=== PATIENT | male | born 1925 | race Caucasian/White ===

== ENCOUNTER 2016-11-12 15:30 | Inpatient (IN) ==
--- NOTE | 2016-11-12 16:48 | Emergency Department Note ---
IMaureen Emily, am scribing for, and in the presence of, William Roberts MD 16: 46. Armando Pierre Charles R, MD, personally performed the services described in this documentation, ascribed by Vidhya Reddy in my presence, and it is both accurate and complete . Arrival - Arrival Chief Complaint: Altered Mental Status Stated Complaint: FELL ED Nursing Triage Note: Family c/o patient with altered mental status onset this am. Son reports told family member this am, he had women and children in his home, but he lives alone and noone else was present. Awake and alert to name and time at present. Also reports tripped over rocking chair and fell onto floor this am, denies injury. Son reports take coumadin daily. Mode of Arrival: Wheelchair Limitations: No Limitations Source: Patient, Family - History of Present Illness HPI Narrative: Pt is a 89 y/o male who was brought to ED by family for further evaluation of AMS that started this morning. Family notes he has been talking out of his head , calling for family members that are out of country, phone calling family members early hours of morning, thoughts some ladies were watching dogs (pt watchs dogs), and called son this afternoon that he fell. However, son reports pt did fall and he helped him to get up, but denies LOC or hitting head. Daughter notes pt was in and out of confusion en route to ED, but she states he seems to be better at answering questions appropriately. Family notes he did have some SOB en route as well, but no resolved. Pt states he does self cath 3x daily. Son notes pt drinks a glass of red wine a night. PCP of pt's is Dr. Bustamante and does take Coumadin daily from PE in the past. Son reports pt had an episode similar to this one a couple years back, in which gareth to [facility], then swing bed, then home with no improvement. Then came to [facility], and pt did improve but not fully. Onset (ago): hour(s) Consistency: constant Severity: mild, moderate Severity scale (1-10): 4 Allergies/Adverse Reactions: Allergies Allergy/AdvReac Type Severity Reaction Status Date / Time No Known Allergies Allergy Verified 11/12/16 16:10 Home Medications: Home Medications Medication Instructions Recorded Confirmed Type Aspirin [Ecotrin] 81 mg PO BID 11/05/14 11/12/16 History Carvedilol [Coreg] 3.125 mg PO 1200 11/05/14 11/12/16 History Dorzolamide/Timolol Oph Soln 2 drop LEFT EYE BID 11/05/14 11/12/16 History [Cosopt] Furosemide Tab [Lasix Tab] 20 mg PO 1200 11/05/14 11/12/16 History Multivitamin [One Daily] 1 each PO 119911/05/14 11/12/16 History Dicyclomine Cap/Tab [Bentyl 10 mg PO QID 11/12/16 11/12/16 History Cap/Tab] Linaclotide [Linzess] 290 mcg PO 119911/12/16 11/12/16 History Polyethylene Glycol Powder 1 each PO 119911/12/16 11/12/16 History [Miralax] Warfarin Sodium [Warfarin Sodium] 7.5 mg PO MOTUTHFRSA@119911/12/16 11/12/16 History Warfarin Sodium [Warfarin Sodium] 10 mg PO SUWE@119911/12/16 11/12/16 History Review of System - Review of System 12 point system: reviewed and no additional remarkable complaints except as stated - Review of System Constitutional: Present: other (fell today, no injury with fall). Absent: chills, fever Respiratory: Present: respiratory distress (SOB but now resolved) Cardiovascular: Absent: chest pain Gastrointestinal: Absent: abdominal pain, nausea, vomiting, diarrhea Musculoskeletal: Absent: back pain Skin: Absent: rash Neurological: Present: confusion. Absent: headache, abnormal gait, other Medical,Surgical,& Family Hx - Medical History Cardio: History of: Hypertension Neurology: History of: TIA Respiratory: History of: Pulmonary Embolism Renal: History of: Renal Problems (self-catherization, constipation) Genitourinary: History of: Recurring Urinary Tract Infections - Surgical History HEENT Surgeries: Surgical HX of: Eye Surgery (right eye glass) - Social History Smoking Status: Never smoker Frequency of Alcohol Use: None Type of Drug Use: None Marital Status: Single Lives With:: Alone (but lives in vicinity of family) Functional capacity: independent ambulation Exam Vital Signs: Vital Signs Temperature 97.8 F 11/12/16 16:24 Pulse Rate 68 11/12/16 16:24 Respiratory Rate 20 11/12/16 16:24 Blood Pressure 111/75 11/12/16 16:24 O2 Sat by Pulse Oximetry 97 11/12/16 16:47 - General General appearance: alert, in no apparent distress - Head Head exam: Present: atraumatic, normocephalic - Eye Eye exam: Present: PERRL, EOMI, other (crusting around eyelids) - ENT ENT exam: Present: mucous membranes dry. Absent: mucous membranes moist - Neck Neck exam: Present: full ROM, trachea midline - Chest Chest inspection: Present: symmetric chest wall rise - Respiratory Respiratory exam: Present: accessory muscle use, rales (bilateral crackles). Absent: respiratory distress - Cardiovascular Cardiovascular exam: Present: regular rate, normal rhythm, normal heart sounds - Extremities Exam Extremities exam: Present: full ROM, pedal edema (+2). Absent: tenderness - Neurological Exam Neurological exam: Present: alert, oriented X3 (pleasantly confused, but stable of orientation x3), CN II-XII intact. Absent: motor sensory deficit - Skin Skin exam: Present: warm, dry Course - Consultations Consultation #1: Hospitalist will admit patient Time: 19:25 Results - Labs CBC & BMP: 11/12/16 16:27 11/12/16 16:27 Lab Results: I have reviewed the patients labs Labs: Laboratory Tests 11/12/16 11/12/16 16:27 16:27 WBC 12.7 H RBC 3.50 L Hgb 11.7 L Hct 35.5 L Plt Count 89 L Lymph % (Auto) 18.1 L [place] % (Auto) 12.9 H Neut # (Auto) 8.7 H [place] # (Auto) 1.6 H INR 2.4 PT Patient/Control Mix 26.8 Circ Anticoag PTT 42.3 H D Laboratory Tests 11/12/16 16:27 Sodium 139 Potassium 4.9 Chloride 109 H Carbon Dioxide 23 Anion Gap 11.9 BUN 38 H Creatinine 2.30 H GFR Calculation 30 Glucose 106 AST 50 H Troponin I < 0.015 Albumin/Globulin Ratio 1.0 L Serum Alcohol < 15 L Laboratory Tests 11/12/16 16:27 Prolactin 8.4 Treponema pallidum IgG Nonreactive Laboratory Tests 11/12/16 16:27 Platelet Estimate Decreased Pappenheimer Bodies - Diagnostic Findings Procedure: Chest x-ray: report reviewed by me (No acute cardiopulmonary process. ), CT: report reviewed by me (Head wo con: Findings are most suggestive of a remote infract within the right parietal lobe although this was not present on the 2013 CT. No interval other imaging is available for comparison. Diffuse atrophy and sequela of chronic microvascular ischemia. If concern for acute infract is high, MRI would be recommended.) Disposition Clinical Impression: UTI (urinary tract infection), Altered mental status Case discussed with: patient, patient's family Disposition: Still a Patient Condition: Stable Time of Disposition: 19:26
[2016-11-12 16:57] LABS: Basophils % 0.2 % (0.0-0.8); Eosinophils % 0.2 % (0.00-10.9); Hematocrit 35.5 VOL% (42.0-52.0); Hemoglobin 11.7 GM/DL (14.0-18.0); Immature Granulocytes % 0.5 %; Immature Granulocytes Absolute 0.06 #; Lymphocytes # 2.3 10*3/uL (1.4-4.0); Lymphocytes % 18.1 % (21.2-54.2); Mean Corpuscular Hemoglobin 33 PG (27-34); Mean Corpuscular Volume 101.4 FL (87-102); Mean Platelet Volume 11.3 FL (9.6-12.0); Monocytes # 1.6 10*3/uL (0.11-0.8); Monocytes % 12.9 % (1.7-12.7); Neutrophils # 8.7 10*3/uL (1.4-7.4); Neutrophils % 68.1 % (38.7-73.9); Platelet Count 89 T/CUMM (130-400); Red Cell Distribution Width 13.6 % (9.3-17.3); White Blood Count 12.7 T/CUMM (4-12)
[2016-11-12 17:15] LABS: INR 2.4
[2016-11-12 17:16] LABS: PT Patient Result 26.8 SECS; Partial Thromboplastin Time 42.3 SECS (0-40)
--- NOTE | 2016-11-12 17:24 | XRay Report ---
Exam: XR chest 1V portable Indication: Fall, contusions, dyspnea Comparison study: 11/05/2014 Findings: The heart, mediastinum and bony structures are stable from prior. There is no focal consolidation, pneumothorax or pleural effusion identified. Impression: No acute cardiopulmonary process. PROCEDURE INTERPRETED AT [facility] DEPARTMENT OF RADIOLOGY Final Report Signed by: Jeison Starr
[2016-11-12 17:26] LABS: Ammonia 32 UMOL/L (11-32)
--- NOTE | 2016-11-12 17:28 | CT Report ---
CT head/brain wo con INDICATION: Fall Headache contusions The total DLP is 1053 mGy*cm. COMPARISON: Noncontrast CT head dated and MRI brain dated 06/30/12 Technique: Serial axial tomographic images of the brain were obtained without the use of intravenous contrast. Dose reduction: This CT exam was performed using one or more of the following dose reduction techniques: Automated exposure control, automated adjustment of the mA and/or KV according to patient size, or use of iterative reconstruction technique. Findings: Prominent hypodensity within the right parietal lobe is new when compared to the 2013 CT study but most suggestive of remote infarct. Moderate generalized atrophy is noted with mild prominence of the sulci and cortical volume loss. Periventricular white matter hypodensity changes are noted bilaterally which do not demonstrate mass effect and are nonspecific but favored to represent sequela of chronic microvascular ischemia. There is no evidence of acute intracranial hemorrhage. The rich-white matter differentiation is otherwise generally maintained. There is no hydrocephalus. The basilar cisterns are patent. The visualized paranasal sinuses, left mastoid air cells and middle ear cavities are predominantly clear. Partial opacification of right mastoid air cells is noted. Postsurgical changes of prior bilateral orbital surgery is noted. The visualized osseous structures and overlying soft tissues of the skull and face demonstrate no acute abnormality. 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 No interval other imaging is available for comparison. Diffuse atrophy and sequela of chronic microvascular ischemia. If concern for acute infarct is high, MRI would be recommended. Generalized atrophy and sequela of chronic microvascular ischemia. PROCEDURE INTERPRETED AT [facility] DEPARTMENT OF RADIOLOGY Final Report Signed by: Jeison Starr
[2016-11-12 17:30] LABS: Alanine Aminotransferase 44 U/L (16-61); Albumin 3.6 G/DL (3.4-5.0); Alkaline Phosphatase 77 U/L (45-117); Aspartate Amino Transferase 50 U/L (0-37); Blood Urea Nitrogen 38 MG/DL (7-18); Calcium 8.6 MG/DL (8.5-10.1); Glucose 106 MG/DL (74-106); Magnesium 2.3 MG/DL (1.8-2.4); Osmolality,Calculated 285.5 MOS/KG (273-304); Potassium 4.9 MMOL/L (3.5-5.1); Sodium 139 MMOL/L (136-145); Troponin I Only < 0.015 NG/ML (0.00-0.045)
[2016-11-12 17:50] LABS: Prolactin 8.4 NG/ML
[2016-11-12 17:53] LABS: Platelet Estimate Decreased
[2016-11-12 19:21] LABS: Apearance,Urine CLOUDY (Clear); Bilirubin,Urine Negative (Negative); Blood, Urine Large mg/dL (Negative); Glucose,Urine (UA) Negative (Negative); Ketones,Urine Negative (Negative); Mucus,Urine Occasional /LPF (Occasional); Nitrite,Urine Negative (Negative); Protein,Urine 100 MG/DL; RBC,Urine 149 /HPF (0-4); Urine Color Yellow (Yellow); Urine Specific Gravity 1.013 (1.001-1.035); Urine Urobilinogen < 2.0 EU/DL (0.2-1.0); WBC,Urine 867 /HPF (0-6)
[2016-11-12] MEDS ORDERED: cefTRIAXone 1,000 MG in SODIUM CHLORIDE 0.9% 100 ML IV STA (19:24)
[2016-11-12] MEDS ORDERED: SODIUM CHLORIDE 0.9% 100 ML IV ONE (19:42)
[2016-11-12] MEDS ORDERED: cefTRIAXone 1,000 MG VIAL ONE (19:42)
[2016-11-12] MEDS ORDERED: BISACODYL 5 MG TABLET PO PRN (20:08)
[2016-11-12] MEDS ORDERED: ACETAMINOPHEN 325 MG TABLET PO PRN (20:08)
--- NOTE | 2016-11-12 20:59 | Hospitalist History & Physical ---
Assessment and Plan - Time spent with patient Time spent with patient: Greater than 30 minutes (1) UTI (urinary tract infection) Status: Acute Assessment and plan: Admit to hospitalist services. Urine cultures obtained in ED. Follow. Rocephin 1 gm IV given in ED. Start meropenem 1 gm IV Q12 hours. Creatinine was 2.3. Hydrate with NS at 100 ml/hr IV. Recheck CBC in am. Current Visit: Yes (2) Altered mental status Status: Acute Assessment and plan: Likely related to UTI. Plan as above for UTI. Continue to monitor. Current Visit: Yes (3) Urinary retention Status: Acute Assessment and plan: Intermittent urinary catheterization Q6 hours. Current Visit: Yes (4) Elevated serum creatinine Status: Acute Assessment and plan: Hydrate with NS at 100 ml/hr. Hold lasix for now. Recheck BMP in am. Current Visit: Yes (5) Hypertension Status: Acute Assessment and plan: Stable in ED. Continue home dose of Coreg 3.125 mg PO daily. Hold lasix for now due to creatinine of 2.3. Continue to monitor. Current Visit: Yes (6) IBS (irritable bowel syndrome) Status: Acute Assessment and plan: IBS with chronic constipation. Continue home dose of miralax and Linzess. Hold home dose of Bentyl for now. Current Visit: Yes (7) History of pulmonary embolus (PE) Status: Acute Assessment and plan: Continue home dose of Coumadin. PT/INR in ED was 26.8/2.4 Recheck PT/INR in am. Current Visit: Yes (8) DVT prophylaxis Status: Acute Assessment and plan: Already taking Coumadin. Continue. Current Visit: Yes History of Present Illness Chief complaint: AMS History of present illness: Mr. Helm is a 89 year old male with a past medical history significant for hypertension, pulmonary embolism, detached retina right eye, IBS with constipation, and urinary retention requiring self-catheterization. 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 Mr. Helm presented the the emergency department of [facility] today accompanied by family who stated that he was "talking out of his head," and they were concerned about a CVA. Evaluation in the ED revealed a WBC count of 12.7, creatinine of 2.3, urine with a large number of WBCs. A urine culture was obtained. His vital signs were stable, and he is afebrile. Currently, he denies any symptoms including fever, abdominal pain, or N/V/D. Hosptialist services were consulted, and the patient will be admitted to the medical-surgical unit for further evaluation and treatment. Home Medications Medication Instructions Recorded Confirmed Type Aspirin [Ecotrin] 81 mg PO BID 11/05/14 11/12/16 History Carvedilol [Coreg] 3.125 mg PO 119911/05/14 11/12/16 History Dorzolamide/Timolol Oph Soln 2 drop LEFT EYE BID 11/05/14 11/12/16 History [Cosopt] Furosemide Tab [Lasix Tab] 20 mg PO 119911/05/14 11/12/16 History Multivitamin [One Daily] 1 each PO 119911/05/14 11/12/16 History Dicyclomine Cap/Tab [Bentyl 10 mg PO QID 11/12/16 11/12/16 History Cap/Tab] Linaclotide [Linzess] 290 mcg PO 119911/12/16 11/12/16 History Polyethylene Glycol Powder 1 each PO 119911/12/16 11/12/16 History [Miralax] Warfarin Sodium [Warfarin Sodium] 7.5 mg PO MOTUTHFRSA@119911/12/16 11/12/16 History Warfarin Sodium [Warfarin Sodium] 10 mg PO SUWE@119911/12/16 11/12/16 History Allergies Allergy/AdvReac Type Severity Reaction Status Date / Time No Known Allergies Allergy Verified 11/12/16 16:10 Medical,Surgical,& Family Hx - Medical History Cardio: History of: Hypertension No history of: Cerebrovascular Disease, CHF, [place] Psychological: No history of: Anxiety Disorders, Depression Neurology: History of: TIA No history of: Cerebrovascular Accident HEENT: History of: Eye Problem (right glass eye) No history of: Ear Problem Endocrine: No history of: Diabetes Mellitus (IDDM), Diabetes Mellitus (NIDDM), Dyslipidemia Rheumatology: No history of;: Rheumatoid Arthritis Respiratory: History of: Pulmonary Embolism No history of: Asthma, COPD Renal: History of: Renal Problems (self-catherization) Genitourinary: History of: Recurring Urinary Tract Infections Gastrointestinal: History of: GI Problems (IBS with constipation) Hematology: History of: Clotting Problems (takes coumadin daily for previous PE. ) Other: No history of: Cancer - Surgical History HEENT Surgeries: Surgical HX of: Eye Surgery (right eye glass) - Family History Family History: Reports;: Family Heart Disease, Family Hypertension - Social History Smoking Status: Former smoker Have you smoked in the last 12 months: No Frequency of Alcohol Use: Occasionally (1 glass of wine nightly) Type of Drug Use: None Marital Status: Lives With:: Alone Functional capacity: uses cane/walker (walking stick) - Constitutional Constitutional: Absent: chills, fever(s), lethargy, malaise, weakness - EENT Eyes: Present: loss of vision (glass right eye) Ears: Absent: decreased hearing, ear discharge Nose, mouth and throat: Absent: headache(s), nasal congestion, sore throat - Cardiovascular Cardiovascular: Present: dyspnea, edema (BLEs). Absent: chest pain at rest, chest pain with activity, diaphoresis, palpitations - Respiratory Respiratory: Present: dyspnea. Absent: cough, wheezing - Gastrointestinal Gastrointestinal: Present: constipation. Absent: diarrhea, nausea, vomiting - Genitourinary Genitourinary: Present: difficulty urinating (requires self-catheterization) - Musculoskeletal Musculoskeletal: Absent: arthralgias, joint swelling, muscle weakness, myalgias - Neurological Neurological: Present: confusion. Absent: numbness, paresthesias, syncope - Psychiatric Psychiatric: Absent: anxiety, depression - Endocrine Endocrine: Absent: cold intolerance, polydipsia, polyphagia, polyuria - Hematologic/Lymphatic Hematologic/Lymphatic: Present: easy bleeding, easy bruising Exam - Constitutional Vitals: Period Temp Pulse Resp BP Sys/Leon Pulse Ox Last 24 Hr 97.8 F-97.8 F 68-68 20-20 111-111/75-75 97-97 Exam: Constitutional System: Afebrile. Awake, alert and oriented x 3. No distress. No tremulousness. Head: Normocephalic, atraumatic. Ears, Nose and Throat System: No pain or tenderness. No epistaxis or discharge Eyes System: Left pupil equal, round, and reactive. Glass right eye. Extraocular muscles intact for left eye. Neck: Supple, without adenopathy, No jugular venous distention. No thyromegaly, neck mass, or prior surgery apparent. Respiratory System: Chest clear to auscultation. Cardiovascular System: Heart with regular rate and rhythm. No murmur. GI System: Abdomen soft, nontender. Normo active bowel sounds present. Musculoskeletal System: Moderate BLE dependent edema noted. Full distal pulses. Normal capillary refill. Neurological System: No discernable sensory deficit. No aphasia Psychiatric System: Conversation is rational Results - Labs CBC & BMP: 11/12/16 16:27 11/12/16 16:27 Lab Results: I have reviewed the past 24 hour labs Quality Measures - VTE Contraindication to Pharmacological VTE Prophylaxis: Already on Theraputic Agent , No Prophylaxis Needed
[2016-11-12] MEDS ORDERED: MEROPENEM 1,000 MG in SODIUM CHLORIDE 0.9% 100 ML IV SCH (23:00)
[2016-11-13] MEDS: SODIUM CHLORIDE 0.9% 1,000 ML IV SCH ×3 (00:02→17:03)
[2016-11-13] MEDS: DORZOLAMIDE/TIMOLOL OPH SOLN 10 ML BOTTLE LEFT EYE SCH ×3 (00:03→21:00)
[2016-11-13] MEDS: ASPIRIN EC 81 MG TABLET PO SCH ×3 (00:03→20:59)
[2016-11-13 06:16] LABS: Calcium 7.8 MG/DL (8.5-10.1); Osmolality,Calculated 294.1 MOS/KG (273-304); Potassium 4.3 MMOL/L (3.5-5.1)
[2016-11-13 06:17] LABS: INR 2.6; PT Patient Result 29.4 SECS
[2016-11-13 07:33] LABS: Basophils % 0.3 % (0.0-0.8); Eosinophils # 0.1 10*3/uL (0.0-0.87); Eosinophils % 0.5 % (0.00-10.9); Hematocrit 31.6 VOL% (42.0-52.0); Hemoglobin 10.4 GM/DL (14.0-18.0); Immature Granulocytes % 0.4 %; Immature Granulocytes Absolute 0.04 #; Lymphocytes # 2.3 10*3/uL (1.4-4.0); Lymphocytes % 24.8 % (21.2-54.2); Mean Corpuscular HGB Conc 32.9 GM/DL (32-36); Mean Corpuscular Hemoglobin 33 PG (27-34); Mean Corpuscular Volume 101.3 FL (87-102); Mean Platelet Volume 11.9 FL (9.6-12.0); Monocytes # 0.7 10*3/uL (0.11-0.8); Monocytes % 7.5 % (1.7-12.7); Neutrophils # 6.1 10*3/uL (1.4-7.4); Neutrophils % 66.5 % (38.7-73.9); Red Blood Count 3.12 MC/CUMM (3.8-5.5); Red Cell Distribution Width 13.8 % (9.3-17.3); White Blood Count 9.2 T/CUMM (4-12)
[2016-11-13 07:35] LABS: Platelet Count 74 T/CUMM (130-400)
[2016-11-13 07:55] LABS: Platelet Estimate Decreased
[2016-11-13] MEDS: cefTRIAXone 1,000 MG in SODIUM CHLORIDE 0.9% 100 ML IV SCH (09:39)
[2016-11-13] MEDS: MULTIVITAMIN (CENTRUM) TABLET PO SCH (11:36)
[2016-11-13] MEDS: CARVEDILOL 3.125 MG TABLET PO SCH (11:36)
[2016-11-13] MEDS: POLYETHYLENE GLYCOL POWDER 17 GM PACK PO SCH (11:36)
[2016-11-13] MEDS: LINACLOTIDE 145 MCG CAPSULE PO SCH (11:36)
--- NOTE | 2016-11-13 17:59 | Hospitalist Progress Note ---
Hospitalist: Subjective Interval history: 89-year-old male who was admitted with UTI and metabolic encephalopathy. Exam - Constitutional Vitals: Period Temp Pulse Resp BP Sys/Leon Pulse Ox Last 24 Hr 97.7 F-98.9 F 63-71 14-22 141-161/61-79 94-98 Exam: General: [No Acute Distress] HEENT: [Normocephalic, atraumatic, Extra ocular movements intact] Neck: [Supple, No JVD] Chest: [Clear to auscultation B/L] CV: [S1 + S2 audible without murmur, gallop or rub] Abd: [soft, NT, Non-distended, BS +] Ext: [No edema] Skin: [No purpura, bruising or rash] Rheumatologic: [No Joint deformities] Neurologic: [Mildly confused] Results - Labs CBC & BMP: 11/13/16 04:39 11/13/16 04:39 - Impressions Assessment and Plan - Time spent with patient Time spent with patient: Greater than 30 minutes (1) UTI (urinary tract infection), POA Status: Acute Assessment and plan: Continue IV Rocephin, follow-up urine culture which is growing gram-negative rods Current Visit: Yes (2) Altered mental status/metabolic encephalopathy Status: Acute Assessment and plan: Due to UTI. Current Visit: Yes (3) Urinary retention Status: Acute Assessment and plan: Intermittent urinary catheterization Q6 hours. Current Visit: Yes (4) Elevated serum creatinine Status: Acute Assessment and plan: Hydrate with NS at 100 ml/hr. Hold lasix for now. Recheck BMP in am. Current Visit: Yes (5) Hypertension, Ess Status: Acute Assessment and plan: Stable in ED. Continue home dose of Coreg 3.125 mg PO daily. Hold lasix for now due to creatinine of 2.3. Continue to monitor. Current Visit: Yes (6) IBS (irritable bowel syndrome) Status: Acute Assessment and plan: IBS with chronic constipation. Continue home dose of miralax and Linzess. Hold home dose of Bentyl for now. Current Visit: Yes (7) History of pulmonary embolus (PE) Status: Acute Assessment and plan: Continue home dose of Coumadin. PT/INR in ED was 26.8/2.4 Recheck PT/INR in am. Current Visit: Yes (8) DVT prophylaxis Status: Acute Assessment and plan: Already taking Coumadin. Continue. Current Visit: Yes Quality Measures - VTE Contraindication to Pharmacological VTE Prophylaxis: Already on Theraputic Agent , No Prophylaxis Needed
[2016-11-13] MEDS ORDERED: WARFARIN 5 MG TABLET PO SCH (18:00)
[2016-11-14] MEDS: SODIUM CHLORIDE 0.9% 1,000 ML IV SCH ×2 (05:46→13:51)
--- NOTE | 2016-11-14 08:49 | Physician Query Form ---
CLICK EDIT DOCUMENT TO SELECT QUERY ANSWER --> OK --> SIGN Radha Mittal RN Clinical Material Control Manager W) [phone] (f) [phone] [email or web address] PROVIDERS: Make your selection(s) from the choices in EACH section by typing an "x" and enter comments in the comment section. Please use your independent medical judgment in providing your response. This request does not imply that any particular answer is desired or expected. CLINICAL INDICATORS: (Providers should not edit this section) Pt. admitted with UTI. Based on documentation of "Pt states he does self cath 3x daily". Based on the above, could you clarify the appropriate diagnosis, if significant , that supports the above abnormalities and additional evaluation, monitoring, and/or treatment rendered: ( x) UTI due to self catheterizations ( ) UTI not due to self catheterizations ( ) Other, please specify: ( ) Clinically unable to determine COMMENTS: PLEASE ALSO DOCUMENT RESPONSE IN PROGRESS NOTES AND/OR DISCHARGE SUMMARY Use of terms such as suspected, likely, or probable (associated with a specific diagnosis that is being evaluated, monitored, or treated as if it exists) are acceptable and can be restated in the discharge summary if not ruled out. [facility]
[2016-11-14] MEDS: ASPIRIN EC 81 MG TABLET PO SCH ×2 (09:01→21:38)
[2016-11-14] MEDS: cefTRIAXone 1,000 MG in SODIUM CHLORIDE 0.9% 100 ML IV SCH (09:01)
[2016-11-14] MEDS: DORZOLAMIDE/TIMOLOL OPH SOLN 10 ML BOTTLE LEFT EYE SCH ×2 (09:02→21:41)
[2016-11-14 10:25] LABS: INR 1.8; PT Patient Result 19.3 SECS
[2016-11-14] MEDS: LINACLOTIDE 145 MCG CAPSULE PO SCH (11:45)
[2016-11-14] MEDS: MULTIVITAMIN (CENTRUM) TABLET PO SCH (11:45)
[2016-11-14] MEDS: CARVEDILOL 3.125 MG TABLET PO SCH (11:45)
[2016-11-14] MEDS: POLYETHYLENE GLYCOL POWDER 17 GM PACK PO SCH (11:47)
--- NOTE | 2016-11-14 17:11 | Hospitalist Progress Note ---
Hospitalist: Subjective Interval history: 89-year-old male who was admitted with UTI and metabolic encephalopathy. Confusion continues to improve Exam - Constitutional Vitals: Period Temp Pulse Resp BP Sys/Leon Pulse Ox Last 24 Hr 97.8 F-99.0 F 66-78 16-20 143-162/69-83 94-96 Exam: General: [No Acute Distress] HEENT: [Normocephalic, atraumatic, Extra ocular movements intact] Neck: [Supple, No JVD] Chest: [Clear to auscultation B/L] CV: [S1 + S2 audible without murmur, gallop or rub] Abd: [soft, NT, Non-distended, BS +] Ext: [No edema] Skin: [No purpura, bruising or rash] Rheumatologic: [No Joint deformities] Neurologic: [Mildly confused] Results - Labs CBC & BMP: 11/13/16 04:39 11/13/16 04:39 - Impressions Assessment and Plan (1) UTI (urinary tract infection), POA Status: Acute Assessment and plan: Continue IV Rocephin, follow-up urine culture which is growing gram-negative rods Current Visit: Yes (2) Altered mental status/metabolic encephalopathy Status: Acute Assessment and plan: Due to UTI. Current Visit: Yes (3) Urinary retention Status: Acute Assessment and plan: Intermittent urinary catheterization Q6 hours. Current Visit: Yes (4) Elevated serum creatinine Status: Acute Assessment and plan: Hydrate with NS at 100 ml/hr. Hold lasix for now. Recheck BMP in am. Current Visit: Yes (5) Hypertension, Ess Status: Acute Assessment and plan: Stable in ED. Continue home dose of Coreg 3.125 mg PO daily. Hold lasix for now due to creatinine of 2.3. Continue to monitor. Current Visit: Yes (6) IBS (irritable bowel syndrome) Status: Acute Assessment and plan: IBS with chronic constipation. Continue home dose of miralax and Linzess. Hold home dose of Bentyl for now. Current Visit: Yes (7) History of pulmonary embolus (PE) Status: Acute Assessment and plan: Continue home dose of Coumadin. PT/INR in ED was 26.8/2.4 Recheck PT/INR in am. Current Visit: Yes (8) DVT prophylaxis Status: Acute Assessment and plan: Already taking Coumadin. Continue. Current Visit: Yes Quality Measures - VTE Contraindication to Pharmacological VTE Prophylaxis: Already on Theraputic Agent , No Prophylaxis Needed
[2016-11-14] MEDS ORDERED: WARFARIN 7.5 MG TABLET PO SCH (18:00)
[2016-11-15] MEDS: SODIUM CHLORIDE 0.9% 1,000 ML IV SCH ×2 (04:57→14:29)
[2016-11-15 07:00] LABS: INR 1.5; PT Patient Result 16.7 SECS
[2016-11-15] MEDS: ASPIRIN EC 81 MG TABLET PO SCH (08:29)
[2016-11-15] MEDS: DORZOLAMIDE/TIMOLOL OPH SOLN 10 ML BOTTLE LEFT EYE SCH (08:29)
[2016-11-15] MEDS: cefTRIAXone 1,000 MG in SODIUM CHLORIDE 0.9% 100 ML IV SCH (09:54)
[2016-11-15] MEDS: LINACLOTIDE 145 MCG CAPSULE PO SCH (11:00)
[2016-11-15] MEDS: CARVEDILOL 3.125 MG TABLET PO SCH (11:00)
[2016-11-15] MEDS: POLYETHYLENE GLYCOL POWDER 17 GM PACK PO SCH (11:00)
[2016-11-15] MEDS: MULTIVITAMIN (CENTRUM) TABLET PO SCH (11:00)
[2016-11-15 11:11] VITALS: BP 160/75
--- NOTE | 2016-11-15 11:49 | Discharge Summary ---
Hospital Course - Hospital Course Hospital Course: 89 year old male with a past medical history significant for hypertension, pulmonary embolism, detached retina right eye, IBS with constipation, and urinary retention requiring self-catheterization. 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 Mr. Helm presented to the the emergency department of [facility] accompanied by family who stated that he was "talking out of his head," and they were concerned about this confusion. Evaluation in the ED revealed a WBC count of 12.7, creatinine of 2.3, urine with a large number of WBCs. A urine culture was obtained. Pt was admitted and started on IV Rocephin. Urine culture grew pansensitive E Coli. His confusion has resolved. 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 He is doing much better, and is being dicharged to swing bed in an improved condition. Total DC Time: 40 minutes - Time spent with patient Time with patient DS: Greater than 30 minutes Diagnosis - Discharge Diagnosis (1) Altered mental status Status: Resolved (2) UTI (urinary tract infection) Status: Resolved Discharge Plan - Discharge Data Disposition: Swing Bed, Hos Based, [facility] Condition at Discharge: Stable Discharge Diet: regular diet Activity: resume usual activities as tolerated Hygiene: no restrictions Weight Bearing at Discharge: full weight bearing Driving: no restrictions - Discharge Medications New Carbamide Perox 6.5% Otic Soln [Debrox] 2 drop BOTH EARS BID #1 bottle Cefuroxime Tab [Ceftin] 500 mg PO BID #10 tablet Continue Dorzolamide/Timolol Oph Soln [Cosopt] 1 drop LEFT EYE BID Furosemide Tab [Lasix Tab] 20 mg PO 1200 Multivitamin [One Daily] 1 each PO 1200 Carvedilol [Coreg] 3.125 mg PO 1200 Aspirin [Ecotrin] 81 mg PO DAILY Warfarin Sodium 10 mg PO SUWE@1200 Polyethylene Glycol Powder [Miralax] 1 each PO 1200 Warfarin Sodium 7.5 mg PO MOTUTHFRSA@1200 Linaclotide [Linzess] 290 mcg PO 1200 Dicyclomine Cap/Tab [Bentyl Cap/Tab] 10 mg PO QID - Follow Up or Referral - Forms/Instructions Exam - Constitutional Vitals: Period Temp Pulse Resp BP Sys/Leon Pulse Ox Last 24 Hr 97.4 F-98.9 F 67-73 18-20 146-160/66-79 91-99 Exam: General: No Acute Distress HEENT: Normocephalic, atraumatic, Extra ocular movements intact Neck: Supple, No JVD Chest: Clear to auscultation B/L CV: S1 + S2 audible without murmur, gallop or rub Abd: soft, NT, Non-distended, BS + Ext: No edema Skin: No purpura, bruising or rash Rheumatologic: No Joint deformities Neurologic: Strength 5/5 all extremities, no gross sensory deficits Discharge Results Procedures and tests throughout hospitalization: Pending Orders 11/12/16 17:49 Blood Culture Stat Labs on day of discharge: Labs from last 24 hours 11/15/16 05:08 INR 1.5 PT Patient/Control Mix 16.7 Preliminary micro results at discharge 11/12/16 17:49 Blood Culture - Preliminary Blood No growth at 1 day 11/12/16 17:49 Blood Culture - Preliminary Blood No growth at 1 day DS: Provider Date of admission: 11/12/16 20:08 Primary care physician: Roman Caruso DO Attending physician on admission: Tavo Underwood MD Consults: 11/13/16 02:43 Consult to Wound Care - Copen [CONS] Routine Reason for Wound Care: Wound Care Management 11/14/16 07:59 Consult to Case Mgmt/Social Srvs [CONS] Routine Reason for Case Mgmt/Social Srvs: Discharge Planning Swingbed/SNF/Custodial 11/14/16 08:52 Consult to Occupational Therapy [CONS] Routine Reason for Occupational Therapy: Evaluate and Treat Consult Comment: for swingbed placement Consult to Physical Therapy [CONS] Routine Reason for Physical Therapy: Evaluate and Treat Consult Comment: for swingbed placement Discharging clinician: Alyssia Jones MD
[2016-11-15] MEDS ORDERED: CEFUROXIME 500 MG TABLET PO SCH (21:00)
[2016-11-15] MEDS ORDERED: CARBAMIDE PEROXIDE 6.5% OTIC SOLN 15 ML BOTTLE BOTH EARS SCH (21:00)
== END 2016-11-15 15:00 | disposition swing bed (61) | DRG 698 ==
LOC: N.ED 15:30 → N.EDINP 20:08 → SUATTDRO 20:08 → N.5E 22:23
PROVIDERS: ADMIT Family Medicine; ATTEND Hospitalist